=== PATIENT | female | born 1960 | race Caucasian/White ===

== ENCOUNTER 2017-01-01 13:25 | Emergency (ER) | payer MEDICAID ==
[2017-01-01 13:35] VITALS: TEMP 97.9
--- NOTE | 2017-01-01 14:12 | EDPHY ---
H & P Time Seen by Provider: 01/01/17 13:37 HPI/ROS: CHIEF COMPLAINT: Boil HISTORY OF PRESENT ILLNESS: The patient is a 56-year-old female who presents to the emergency department with a boil in her right medial thigh. Patient has had multiple boils in the past. This bolus been present for the past few days. She attempted to pop boil last night. She got a small amount of drainage. She now has increased pain and redness at that site. There is no fevers or chills. She only has 1 lesion. No recent trauma. REVIEW OF SYSTEMS: My complete review of systems is negative except as mentioned in the HPI. Past Medical/Surgical History: Includes diabetes, hypertension, sciatica, boils, PE Past surgical history: Includes hernia repair, hysterectomy, cholecystectomy Social history: The patient does not smoke Smoking Status: Former smoker Physical Exam: Vitals noted. Afebrile GENERAL: Well-appearing, in no acute distress, alert. HEENT: Eyes normal to inspection, normal pharynx, no signs of dehydration. NECK: No thyromegaly, no lymphadenopathy, supple. RESPIRATORY: Clear to auscultation bilaterally, no rales, rhonchi or wheezing. CVS: Regular rate and rhythm, no rubs, murmurs, or gallops. ABDOMEN: Soft, nontender, nondistended, no organomegaly. BACK: Normal to inspection, no CVA tenderness. SKIN: Normal color, warm, dry. No pallor. Patient is a single 2inch in diameter boil on her right medial thigh. There is no fluctuance. The skin feels indurated. There is a small papule that is draining clear fluid. EXTREMITIES: No pedal edema, no joint swelling. NEURO/PSYCH: Alert and oriented, normal mood and affect Constitutional: Initial Vital Signs Temperature (C) 36.6 C 01/01/17 13:32 Heart Rate 63 01/01/17 13:32 Respiratory Rate 18 01/01/17 13:32 Blood Pressure 106/84 H 01/01/17 13:32 O2 Sat (%) 96 01/01/17 13:32 O2 Delivery Mode Room Air Allergies/Adverse Reactions: codeine Allergy (Verified 09/12/15 11:48) morphine Allergy (Verified 07/26/16 14:32) Home Medications: Medication Instructions Recorded amLODIPine BESYLATE [Norvasc 10 mg 10 mg PO DAILY 04/05/11 (*)] Aspirin [Aspirin 81mg (*)] 81 mg PO DAILY 09/12/15 Atorvastatin Calcium [Lipitor 40 40 mg PO DAILY 09/12/15 mg (*)] Insulin Aspart [novoLOG] 10 unit SC TIDMEAL 09/12/15 Insulin Detemir [Levemir] 40 unit SQ DAILY 09/12/15 Insulin Detemir [Levemir] 50 unit SQ HS 09/12/15 Lisinopril/Hctz 20/12.5MG 2 ea PO DAILY 09/12/15 [Zestoretic/Prinzide 20/12.5MG (*)] Multivitamins [Multivitamin (*)] 1 each PO DAILY 09/12/15 Propranolol Sr [Inderal LA 80mg 80 mg PO DAILY 07/26/16 (*)] Doxycycline Hyclate 100 mg PO BID #20 tablet 01/01/17 Medical Decision Making ED Course/Re-evaluation: In the emergency department I discussed possible etiologies with the patient. I answered all her questions. At this time I do not feel she needs an ID of this lesion. The tissue feels indurated rather than fluctuant. Patient will be started on doxycycline. Patient will return with worsening symptoms. I gave her warnings prior to leaving. She will return with worsening symptoms. She will follow up with the primary care physician. Differential Diagnosis: My differential includes but is not limited to cellulitis, abscess, boil, adenitis, bacteremia, sepsis Departure - Departure Disposition: Home, Routine, Self-Care Clinical Impression: Rash, Boil Condition: Good Instructions: Furunculosis and Carbunculosis (ED) Additional Instructions: Take your entire course of antibiotics. Return with increasing pain, swelling, redness, fever or any other concerns. Referrals: Humaira Astudillo NP [Primary Care Provider] - 2-3 days, call for appt. Prescriptions: Doxycycline Hyclate 100 mg PO BID #20 tablet
[2017-01-01 14:34] VITALS: BP 124/78; PULSE 80; RESP 14; O2SAT 94
== END 2017-01-01 14:33 | disposition home or self-care (01) ==
DX: L02.425 Furuncle of right lower limb (principal); R21 Rash and other nonspecific skin eruption; I10 Essential (primary) hypertension; E11.9 Type 2 diabetes mellitus without complications; Z79.82 Long term (current) use of aspirin; Z79.4 Long term (current) use of insulin; Z87.891 Personal history of nicotine dependence